=== PATIENT | male | born 1960 | race Caucasian/White ===

== ENCOUNTER → 2020-10-23 14:26 | Outpatient (CLI) | payer SELFPAY ==
--- NOTE | ~2020-10-23 | XR_ITS ---
XR sacroiliac joints min 3V DATE: 10/23/2020 15:01 INDICATION: Sacroiliitis TECHNIQUE: AP and bilateral oblique views COMPARISON: None FINDINGS: No fracture or dislocation, erosion or ankylosis at the sacroiliac joints. Pubic symphysis is intact. IMPRESSION: Negative examination Reviewed, dictated and finalized at [facility]. Reviewed, dictated and finalized at [facility]. IMPRESSION: Negative examination
== END ==
PROVIDERS: PCP Family Medicine; Visit Provider Family Medicine
DX: M46.1 Sacroiliitis, not elsewhere classified (principal)
CPT/HCPCS: 72202

== ENCOUNTER → 2020-11-01 16:42 | Outpatient (CLI) | payer SELFPAY ==
--- NOTE | ~2020-11-01 | XR_ITS ---
XR lumbar spine 2-3V DATE: 11/01/2020 19:44 INDICATION: Right hip pain TECHNIQUE: AP, lateral, coned lateral lumbosacral views COMPARISON: None FINDINGS: Prominent degenerative disease at T11-12. Normal alignment lumbar spine. No fracture or bon e destruction or spondylolisthesis. Lumbar pedicles are intact. Lumbar and lumbosacral interspaces ar e well preserved. There is minimal degenerative spurring of the lumbar vertebrae. The sacroiliac join ts are unremarkable. There is abdominal aortic and iliac arterial calcification; no apparent abdominal aortic aneurysm is identified. IMPRESSION: Minimal degenerative spurring of the lumbar spine Prominent degenerative disc disease at T11-12 Reviewed, dictated and finalized at location [facility].
--- NOTE | ~2020-11-01 | XR_ITS ---
XR hip RT min 2V DATE: 11/01/2020 19:44 INDICATION: Right hip pain TECHNIQUE: AP and lateral views COMPARISON: None FINDINGS: No fracture or dislocation, avascular necrosis or bone destruction. Right hip joint space i s well preserved. The pubic symphysis and right sacroiliac joint are intact. IMPRESSION: Negative right hip Reviewed, dictated and finalized at location [facility]. IMPRESSION: Negative right hip
== END ==
PROVIDERS: PCP Family Medicine; Visit Provider Physician Assistant
DX: M51.34 Other intervertebral disc degeneration, thoracic region (principal); M51.36 Other intervertebral disc degeneration, lumbar region
CPT/HCPCS: 72100; 73502

== ENCOUNTER 2023-12-11 17:35 | Emergency (ER) | payer OTHER, SELFPAY ==
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
[2023-12-11 17:39] VITALS: BP 226/123; PULSE 92; RESP 18; TEMP 36.4; O2SAT 100
--- NOTE | 2023-12-11 19:59 | ECG_ITS ---
Test Date: 2023-12-11 20:07:17 Measurements Intervals [place] Rate: 98 P: 16 KS: 155 QRS: -20 QRSD: 91 T: -6 QT: 346 QTc: 442 Interpretive Statements SINUS RHYTHM POSSIBLE LEFT ATRIAL ENLARGEMENT [-0.1mV P-WAVE IN V1/V2] No previous ECG available for comparison Electronically Signed On 12-12-2023 10:38:10 CDT by Gus Moreno M.D.
[2023-12-11 20:05] LABS: Glucose Point of Care 119 mg/dl (65-105)
[2023-12-11 20:21] LABS: Basophils Absolute Auto 0.1 K/mm3 (0.0-0.1); Basophils Percent Auto 0.9 % (0.2-1.2); Eosinophils Absolute Auto 0.3 K/mm3 (0-0.3); Hematocrit 43.9 % (42.0-52.0); Hemoglobin 15.7 g/dL (14.0-18.0); Immature Granulocyte Absolute 0.07 K/mm3 (0.00-0.031); Immature Granulocyte Percent A 0.5 % (0-0.5); Lymphocytes Absolute Auto 1.97 K/mm3 (0.9-3.2); Lymphocytes Percent Auto 13.8 % (18.3-44.2); Mean Corpuscular HGB Conc 35.8 g/dl (32-36); Mean Corpuscular Hemoglobin 32.1 pg (26-34); Mean Corpuscular Volume 89.8 fl (80-100); Mean Platelet Volume 9.3 fl (7.4-10.4); Monocytes Absolute Auto 0.8 K/mm3 (0.1-0.6); Monocytes Percent Auto 5.6 % (2.6-8.5); Neutrophils Percent Auto 77.2 % (45.5-73.1); Platelet Count Result 258 k/mm3 (150-375); Red Blood Count 4.89 M/mm3 (4.6-6.20); Red Cell Distribution Width 13.3 % (11.5-14.5); White Blood Count 14.3 K/mm3 (4.5-10.0)
[2023-12-11 20:32] LABS: Alanine Aminotransferase 44 U/L (6-50); Albumin Level 4.6 g/dL (3.5-5.1); Alkaline Phosphatase 106 U/L (38-126); Anion Gap 10 mmol/L (4-12); Aspartate Amino Transferase 51 U/L (17-59); Bilirubin,Total 0.9 mg/dL (0.2-1.3); Blood Urea Nitrogen 25 mg/dL (9-20); Calcium 9.1 mg/dL (8.4-10.2); Carbon Dioxide 25 mmol/L (22-30); Chloride 103 mmol/L (98-107); Estimated CRCL calculation 74 ml/min; Estimated Glomerular Filt Rate > 60; Glucose 125 mg/dL (65-110); Lipase 65 U/L (23-300); Potassium 3.7 mmol/L (3.4-5.0); Sodium 138 mmol/L (137-145)
[2023-12-11 20:34] LABS: Partial Thromboplastin Time 20.7 Seconds (22.3-36.8)
[2023-12-11] MEDS: ASPIRIN 81 MG CHEWABLE TABLET 324 MG PO (20:50)
[2023-12-11 20:53] LABS: Troponin I 0.021 ng/mL (0.000-0.034)
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
[2023-12-11] MEDS: SODIUM CHLORIDE 0.9% IV 1,000 ML 999 ML IV CONT (20:57)
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
[2023-12-11 22:16] VITALS: BP 195/123; PULSE 106; RESP 16; O2SAT 96
[2023-12-11] MEDS: MORPHINE SULFATE (*CRX) 4 MG/ML INJ IV PUSH (22:16)
[2023-12-11 22:19] VITALS: O2SAT 96
[2023-12-12 01:09] VITALS: BP 175/89; PULSE 90; RESP 14; O2SAT 96
[2023-12-12] MEDS: MORPHINE SULFATE (*CRX) 4 MG/ML INJ IV PUSH ×2 (01:09→02:35)
== END 2023-12-12 02:41 | disposition short-term general hospital (02) ==
PROVIDERS: Emergency Provider Emergency Medicine; PCP Family Medicine
DX: S27.0XXA Traumatic pneumothorax, initial encounter (principal); S22.42XA Multiple fractures of ribs, left side, initial encounter for closed fracture; J84.9 Interstitial pulmonary disease, unspecified; Z87.891 Personal history of nicotine dependence; I71.43 Infrarenal abdominal aortic aneurysm, without rupture; M47.812 Spondylosis without myelopathy or radiculopathy, cervical region; Z98.1 Arthrodesis status; R94.31 Abnormal electrocardiogram [ECG] [EKG]; Z79.899 Other long term (current) drug therapy; V48.5XXA Car driver injured in noncollision transport accident in traffic accident, initial encounter
CPT/HCPCS: 36415; 70450; 71046; 71260; 72125; 74177; 80053; 82948; 83690; 84484; 85025; 85610; 85730; 93005; 96361; 96374; 96376; 99285; A9270; J2270; J7030; Q9967